=== PATIENT | male | born 1955 | race Caucasian/White ===

== ENCOUNTER 2016-12-11 19:17 | Emergency (ER) | payer OTHER, MEDICARE ==
[~2016-12-11] VITALS: Ht 170.2 cm; Wt 75.0 kg
[~2016-12-11 19:17] MED LIST: CIPR500T3 PO
[2016-12-11] MEDS ORDERED: ONDANSETRON 4MG/2ML VIAL (J2405) IV ONE (19:30)
[2016-12-11] MEDS ORDERED: KETOROLAC 30 MG/ML VIAL (J1885) IV ONE (19:30)
[2016-12-11] MEDS ORDERED: AMLO-140 PO (19:37)
[2016-12-11] MEDS ORDERED: VENL37TA PO (19:37)
[2016-12-11] MEDS ORDERED: LISI40TAB PO (19:37)
[2016-12-11 20:24] LABS: BASO % 0.1 % (0.0-1.0); EOS % 0.3 % (0.0-3.0); LARGE UNSTAINED CELL % 0.3 % (0.0-4.0); LYMPH # 0.5 K/mm3 (1.5-4.5); LYMPH % 4.4 % (24.0-44.0); MEAN CORPUSCULAR HEMOGLOBIN 32.2 pg (27.0-33.0); MEAN CORPUSCULAR HGB CONC 35.3 g/dl (32.0-36.5); MEAN CORPUSCULAR VOLUME 91.3 fl (80.0-96.0); MONO # 0.4 K/mm3 (0.0-0.8); MONO % 3.2 % (0.0-5.0); NEUTROPHILS # 10.6 K/mm3 (1.8-7.7); NEUTROPHILS % 91.7 % (36.0-66.0); PLATELET COUNT, AUTOMATED 264 k/mm3 (150-450); RED CELL DISTRIBUTION WIDTH 13.6 % (11.5-14.5); WHITE BLOOD COUNT 11.6 K/mm3 (4.0-10.0)
[2016-12-11 20:27] LABS: INR 0.95
--- NOTE | 2016-12-11 20:30 | REPUSA ---
HISTORY: RIGHT RENAL COLIC. TECHNIQUE: Axial CT imaging of abdomen and pelvis with sagittal and coronal reformatted imaging, with out contrast. DLP= 437 mGy-cm. FINDINGS: Lung bases are clear. Coronary artery calcification is noted in the RCA. Bone windows d emonstrate surgical changes in the lumbosacral spine and degenerative bony changes with no acute frac ture or instability seen. There are bilateral large and multiple cysts identified in the kidneys, the largest 2 cysts in the r ight kidney measuring 6.6 cm and 5.4 cm, and the largest in the left kidney measuring 6.0 cm. There is an 8 mm nonobstructing calculus in the lower pole of the right kidney, and there is an irregular 9 mm nonobstructing calculus in the lower pole of left kidney. Multiple tiny renal artery calcificati ons are noted bilaterally. No hydronephrosis or hydroureter is seen on the noncontrast examination. Urinary bladder is normal on noncontrast examination. The liver, biliary tree, gallbladder, spleen, pancreas, adrenal glands, and retroperitoneal structure s are otherwise normal on noncontrast examination. No pelvic mass lesions or abnormal peritoneal flu id collections are seen. The unopacified bowel is normal with no bowel wall mass lesions, obstructio n, perforation, inflammatory reaction, or evidence of diverticulitis is seen on the noncontrast exami [facility]. No abdominal wall hernia is seen. IMPRESSION: 1. Bilateral nonobstructing nephrolithiasis as discussed above and large bilateral multi ple cysts identified in the kidneys, with no hydronephrosis or hydroureter seen on noncontrast examin [facility]. No ureteral or bladder calculi are seen. Multiple small calcified plaques are also noted dana aterally. The renal arteries. 2. Focal coronary artery calcification noted in the RCA. 3. The remainder of the noncontrast CT examination of the abdomen and pelvis is normal.
[2016-12-11 20:49] LABS: ALBUMIN 4.6 GM/DL (3.2-5.2); ALBUMIN/GLOBULIN RATIO 1.21 (1.00-1.93); ALKALINE PHOSPHATASE 75 U/L (45-117); ALT/SGPT 26 U/L (12-78); AMYLASE 60 U/L (25-115); ANION GAP 10 MEQ/L (8-16); AST/SGOT 17 U/L (15-37); BILIRUBIN,DIRECT 0.3 MG/DL (0.0-0.2); BILIRUBIN,TOTAL 1.7 MG/DL (0.2-1.0); BLOOD UREA NITROGEN 15 MG/DL (7-18); CALCIUM LEVEL 9.6 MG/DL (8.8-10.2); CARBON DIOXIDE LEVEL 25 MEQ/L (21-32); CHLORIDE LEVEL 98 MEQ/L (98-107); CREATININE FOR GFR 0.99 MG/DL (0.70-1.30); GLOMERULAR FILTRATION RATE > 60.0 (>49); GLUCOSE, FASTING 140 MG/DL (80-110); POTASSIUM SERUM 3.6 MEQ/L (3.5-5.1); SODIUM LEVEL 133 MEQ/L (136-145); TOTAL PROTEIN 8.4 GM/DL (6.4-8.2)
[2016-12-11] MEDS ORDERED: ZOFR4TAB3 PO (21:04)
[2016-12-11 21:10] VITALS: BP 157/101
--- NOTE | 2016-12-12 07:36 | ED PDOC ---
Post-Departure Follow-Up certified letter sent to patient regarding radiology report Nika Dickinson MD Dec 12, 2016 07:36
== END 2016-12-11 21:14 | disposition home or self-care (01) ==
LOC: EDBD 19:17 → M ED 19:17
DX: R31.9 Hematuria, unspecified (principal); N20.0 Calculus of kidney; N28.1 Cyst of kidney, acquired; Z79.899 Other long term (current) drug therapy; Z88.5 Allergy status to narcotic agent
CPT/HCPCS: 74176; 80048; 80076; 81001; 82150; 83690; 85025; 85610; 87086; 96374; 96375; 99284; J1885

== ENCOUNTER 2016-12-16 21:47 | Emergency (ER) | payer OTHER, MEDICARE ==
[~2016-12-16] VITALS: Ht 170.2 cm; Wt 71.7 kg
[~2016-12-16 21:47] MED LIST changes: +AMLO-140 PO; +LISI40TAB PO; +VENL37TA PO; +ZOFR4TAB3 PO
[2016-12-16] MEDS ORDERED: NS 1,000 ML IV ONE (23:15)
[2016-12-16] MEDS ORDERED: ONDANSETRON 4MG/2ML VIAL (J2405) IV ONE (23:15)
[2016-12-16] MEDS ORDERED: fentaNYL 100 MCG/2 ML INJECTION (J3010) IV ONE (23:15)
[2016-12-16] MEDS ORDERED: KETOROLAC 30 MG/ML VIAL (J1885) IV ONE (23:15)
--- NOTE | 2016-12-16 23:50 | REPUSA ---
CT of the abdomen and pelvis without contrast Clinical statement: Pain. Technique: Multiple axial CT images were obtained from the base of the lungs to the floor of the pelv is utilizing 5 mm axial slices without administration of contrast. Coronal and sagittal reconstructio ns were also obtained. Comparison: 12/11/2016. Findings: Chest: The visualized lung bases are clear. There is a small hiatal hernia. Abdomen: The kidneys are enlarged bilaterally. There are large bilateral simple renal cysts. There ar e nonobstructing stones in the left kidney measuring up to 6 mm. There is severe right-sided hydronep hrosis, caused by 8mm stone in the distal right ureter. The liver, spleen, pancreas, gallbladder and adrenal glands are unremarkable. The aorta demonstrates normal caliber and contour. There is no abdom inal lymphadenopathy or ascites. Pelvis: The bowel is unremarkable, with no obstructive or inflammatory changes. The urinary bladder i s within normal limits. There is no pelvic lymphadenopathy or ascites. The other pelvic structures ap pear unremarkable. Bones: There are no suspicious osseous abnormalities seen. Lumbosacral fusion changes from L4 through S1 are intact. Multilevel degenerative disc disease is noted, most severe at L2/L3 and L3/L4. Impression: 1. Severe right-sided hydronephrosis, caused by 8mm obstructing stone in the distal right ureter. The se findings have slightly worsened since the prior study, with the obstructing stone stable in positi on, and slightly larger than on the prior study. 2. Nonobstructing left renal nephrolithiasis. 3. Large bilateral simple renal cysts. 4. Small hiatal hernia. 5. No obstructive or inflammatory bowel changes. 6. Spondylosis and surgical fusion changes in the spine as described.
[2016-12-17 00:01] LABS: BASO % 0.3 % (0.0-1.0); EOS % 0.4 % (0.0-3.0); LARGE UNSTAINED CELL # 0.1 K/mm3 (0.0-0.4); LARGE UNSTAINED CELL % 0.6 % (0.0-4.0); LYMPH # 0.5 K/mm3 (1.5-4.5); LYMPH % 4.2 % (24.0-44.0); MEAN CORPUSCULAR HEMOGLOBIN 32.2 pg (27.0-33.0); MEAN CORPUSCULAR HGB CONC 34.8 g/dl (32.0-36.5); MEAN CORPUSCULAR VOLUME 92.4 fl (80.0-96.0); MONO # 0.7 K/mm3 (0.0-0.8); MONO % 6.2 % (0.0-5.0); NEUTROPHILS # 9.3 K/mm3 (1.8-7.7); NEUTROPHILS % 88.3 % (36.0-66.0); PLATELET COUNT, AUTOMATED 276 k/mm3 (150-450); RED CELL DISTRIBUTION WIDTH 13.4 % (11.5-14.5); WHITE BLOOD COUNT 10.6 K/mm3 (4.0-10.0)
[2016-12-17] MEDS ORDERED: FLOM5CAP PO (00:10)
[2016-12-17] MEDS ORDERED: PERC5TAB12 PO (00:10)
[2016-12-17] MEDS ORDERED: CIPR-249 PO (00:10)
[2016-12-17 00:11] LABS: ALBUMIN 3.8 GM/DL (3.2-5.2); ALBUMIN/GLOBULIN RATIO 1.03 (1.00-1.93); BILIRUBIN,DIRECT 0.3 MG/DL (0.0-0.2); BILIRUBIN,TOTAL 1.9 MG/DL (0.2-1.0); CALCIUM LEVEL 9.4 MG/DL (8.8-10.2); CREATININE FOR GFR 2.02 MG/DL (0.70-1.30); GLOMERULAR FILTRATION RATE 35.7 (>49); POTASSIUM SERUM 3.7 MEQ/L (3.5-5.1); TOTAL PROTEIN 7.5 GM/DL (6.4-8.2)
[2016-12-17 00:15] VITALS: BP_DIAS 78
[2016-12-17] MEDS ORDERED: CIPROFLOXACIN 500 MG TAB PO ONE (00:15)
[2016-12-17] MEDS ORDERED: TAMSULOSIN 0.4 MG CAP PO ONE (00:15)
[2016-12-17 01:14] VITALS: BP_SYST 136
--- NOTE | 2016-12-17 07:39 | ED PDOC ---
Post-Departure Follow-Up radiology report faxed to Nika Fregoso MD Dec 17, 2016 07:39
== END 2016-12-17 01:16 | disposition home or self-care (01) ==
LOC: M ED 21:47
DX: N10 Acute pyelonephritis (principal); N20.1 Calculus of ureter; N39.0 Urinary tract infection, site not specified; K44.9 Diaphragmatic hernia without obstruction or gangrene; N28.1 Cyst of kidney, acquired; M47.896 Other spondylosis, lumbar region; M43.26 Fusion of spine, lumbar region; E78.5 Hyperlipidemia, unspecified; Z87.442 Personal history of urinary calculi; Z87.891 Personal history of nicotine dependence; Z79.899 Other long term (current) drug therapy; Z88.5 Allergy status to narcotic agent
CPT/HCPCS: 74176; 80048; 80076; 81001; 83690; 85025; 87086; 96361; 96374; 96375; 99284; J1885; J2405; J3010

== ENCOUNTER 2018-09-19 14:45 | Emergency (ER) | payer MEDICARE, OTHER ==
[~2018-09-19] VITALS: Ht 170.2 cm; Wt 69.0 kg
[~2018-09-19 14:45] MED LIST changes: +CIPR-249 PO; +FLOM0.4C39 PO; +LISI40TA PO; -LISI40TAB PO; +PERC5TAB12 PO; +ZOFR4TAB14 PO; -ZOFR4TAB3 PO
[2018-09-19] MEDS ORDERED: AMLO5TAB6 PO (15:06)
[2018-09-19] MEDS ORDERED: [UNRECOGNIZED DRUG - REMARK] (15:06)
[2018-09-19] MEDS ORDERED: OMEP-218 PO (15:07)
[2018-09-19 15:24] LABS: HEMATOCRIT 48.8 % (42.0-52.0); HEMOGLOBIN 16.5 g/dl (13.5-17.5); MEAN CORPUSCULAR HEMOGLOBIN 31.9 pg (27.0-33.0); MEAN CORPUSCULAR HGB CONC 33.8 g/dl (32.0-36.5); MEAN CORPUSCULAR VOLUME 94.2 fl (80.0-96.0); PLATELET COUNT, AUTOMATED 292 10^3/uL (150-450); RED BLOOD COUNT 5.18 10^6/uL (4.30-6.10); WHITE BLOOD COUNT 14.4 10^3/uL (4.0-10.0)
[2018-09-19 15:47] LABS: AMPHETAMINES LEVEL URINE NEGATIVE (NEGATIVE); BARBITURATES URINE NEGATIVE (NEGATIVE); BENZODIAZEPINES URINE NEGATIVE (NEGATIVE); CANNABINOIDS URINE POSITIVE (NEGATIVE); COCAINE METABOLITE URINE NEGATIVE (NEGATIVE); METHADONE URINE NEGATIVE (NEGATIVE); OPIATES URINE NEGATIVE (NEGATIVE); PHENCYCLIDINE URINE NEGATIVE (NEGATIVE)
[2018-09-19 16:04] LABS: ACETAMINOPHEN LEVEL < 2.0 UG/ML (10.0-30.0); ALBUMIN 4.8 GM/DL (3.2-5.2); ALT/SGPT 24 U/L (12-78); BILIRUBIN,DIRECT 0.4 MG/DL (0.0-0.2); BLOOD UREA NITROGEN 19 MG/DL (7-18); CALCIUM LEVEL 9.7 MG/DL (8.8-10.2); CARBON DIOXIDE LEVEL 23 MEQ/L (21-32); CHLORIDE LEVEL 107 MEQ/L (98-107); CREATININE FOR GFR 1.07 MG/DL (0.70-1.30); ETHYL ALCOHOL (ETHANOL) 0.019 % (0.000-0.010); GLOMERULAR FILTRATION RATE > 60.0 (>49); GLUCOSE, FASTING 137 MG/DL (70-100); POTASSIUM SERUM 3.2 MEQ/L (3.5-5.1); SALICYLATE LEVEL < 1.7 MG/DL (5.0-30.0); SODIUM LEVEL 141 MEQ/L (136-145); TOTAL PROTEIN 8.5 GM/DL (6.4-8.2)
[2018-09-19] MEDS ORDERED: POTASSIUM CHLORIDE 10 MEQ SR TABLET PO ONE (16:15)
[2018-09-19 17:15] VITALS: BP 141/89
== END 2018-09-19 17:16 | disposition home or self-care (01) ==
LOC: M ED 14:45
DX: R45.4 Irritability and anger (principal); Z87.891 Personal history of nicotine dependence; Z79.899 Other long term (current) drug therapy; Z88.5 Allergy status to narcotic agent
CPT/HCPCS: 80048; 80076; 80307; 84443; 85027; 99284; G0480